=== PATIENT | female | born 1950 | race Caucasian/White ===

== ENCOUNTER 2022-06-22 12:28 | Observation (INO) | payer MEDICARE ==
[~2022-06-22] VITALS: Ht 157.5 cm; Wt 78.5 kg
[~2022-06-22 12:28] MED LIST: BENZONATATE100 MG PO; TAMIFLU 75 MG C75 MG PO
[2022-06-22 13:04] LABS: HEMOGLOBIN 14.7 gm/dl (12.3-15.3); RED BLOOD COUNT 4.82 M/UL (4.00-5.10); WHITE BLOOD COUNT 6.8 K/UL (4.5-11.0)
[2022-06-22 13:33] LABS: BUN/CREATININE RATIO 27 (0-10)
[2022-06-22] MEDS ORDERED: VITAMIN D21250 MCG PO (16:05)
[2022-06-22] MEDS ORDERED: VALSARTAN-HCTZ1 EAC3 PO (16:05)
[2022-06-22] MEDS ORDERED: LEVOTHYROXINE50 MCG PO (16:06)
[2022-06-23 03:09] LABS: HEMOGLOBIN 13.6 gm/dl (12.3-15.3); RED BLOOD COUNT 4.25 M/UL (4.00-5.10); WHITE BLOOD COUNT 5.8 K/UL (4.5-11.0)
[2022-06-23 03:20] LABS: BUN/CREATININE RATIO 25 (0-10)
[2022-06-24 03:37] LABS: HEMOGLOBIN 12.9 gm/dl (12.3-15.3); RED BLOOD COUNT 4.02 M/UL (4.00-5.10); WHITE BLOOD COUNT 5.8 K/UL (4.5-11.0)
[2022-06-24 04:09] LABS: BUN/CREATININE RATIO 22 (0-10)
[2022-06-24] MEDS ORDERED: LOPRESSOR 25 MG25 MG PO (10:57)
[2022-06-24] MEDS ORDERED: ASPIRIN EC81 MG PO (10:57)
[2022-06-24] MEDS ORDERED: ELIQUIS 5 MG TAB5 MG PO (10:57)
[2022-06-24] MEDS ORDERED: ATORVASTATIN CA20 MG PO (10:57)
== END 2022-06-24 11:43 | disposition home or self-care (01) ==
LOC: ER1 12:28 → CDU 15:31 → MED SURG 4 16:14
PROVIDERS: Family Medicine; Physician Assistant Medical; ADMIT Internal Medicine
DX: I48.91 Unspecified atrial fibrillation (principal); I10 Essential (primary) hypertension; E03.9 Hypothyroidism, unspecified; E55.9 Vitamin D deficiency, unspecified; E66.9 Obesity, unspecified; Z68.31 Body mass index [BMI] 31.0-31.9, adult; Z79.890 Hormone replacement therapy; Z79.899 Other long term (current) drug therapy; Z85.3 Personal history of malignant neoplasm of breast; Z87.891 Personal history of nicotine dependence
CPT/HCPCS: ECHO; 36415; 70450; 71045; 80048; 80053; 82550; 82553; 83735; 83880; 84100; 84439; 84443; 84484; 85025; 85027; 85610; 93005; 93306; 96374; 96375; 99285; G0378; J1940